=== PATIENT | male | born 1990 | race Two or more races ===

== ENCOUNTER 2021-01-06 12:05 | Emergency (ER) | payer OTHER | END 2021-01-06 12:45 | disposition home or self-care (01) | LOC: ER1 12:05 | DX: M54.2 Cervicalgia (principal); V49.40XA Driver injured in collision with unspecified motor vehicles in traffic accident, initial encounter; Y92.410 Unspecified street and highway as the place of occurrence of the external cause | CPT/HCPCS: 99283 ==